=== PATIENT | female | born 1940 | race Caucasian/White ===

== ENCOUNTER 2020-10-01 09:30 | Emergency (ER) | payer OTHER ==
[~2020-10-01] VITALS: Ht 165.1 cm; Wt 86.2 kg
[2020-10-01 10:23] LABS: Basophils # (auto) 0 10 ^3/uL (0-0.2); Lymphocytes # (auto) 1.6 10 ^3/uL (0.4-5.4); Mean Corpuscular Hgb Conc. 34.8 g/dL (32.0-36.0); Neutrophils # (auto) 3.4 10 ^3/uL (1.6-8.6); Nucleated Red Blood Cells % 0.1 %; White Blood Cell 5.5 10^3/uL (4.4-10.8)
[2020-10-01 10:26] LABS: Basophils % (auto) 0.6 % (0.0-2.0); Eosinophils # (auto) 0 10 ^3/uL (0-0.8); Eosinophils % (auto) 0.8 % (0.0-7.0); Hemoglobin 9.8 g/dL (12.2-16.2); Mean Corpuscular Volume 112.1 fL (80.0-100.0); Monocytes # (auto) 0.3 10 ^3/uL (0-1.3); Monocytes % (auto) 6.3 % (0.0-12.0); Neutrophils % (auto) 62.3 % (37.0-80.0); Red Cell Distribution Width 14.2 % (11.8-14.3)
[2020-10-01 10:48] LABS: Albumin 3.6 g/dL (3.4-5.0); Anion Gap 5 (5-15); Blood Urea Nitrogen 18 mg/dL (7-18); Calcium 8.1 mg/dL (8.5-10.1); Carbon Dioxide 23 mmol/L (21-32); Chloride 108 mmol/L (98-107); Glucose 85 mg/dL (74-106); Potassium 4.6 mmol/L (3.5-5.1); Sodium 136 mmol/L (136-145)
[2020-10-01 11:00] LABS: Alanine Aminotransferase 24 U/L (13-56); Alkaline Phosphatase 48 U/L (45-117); Aspartate Aminotransferase 24 U/L (15-37); BUN/Creatinine Ratio 12.2; Bilirubin, Total 0.4 mg/dL (0.2-1.0); GFR African American 44 mL/min; GFR Non-African American 36 mL/min; Total Protein 6.6 g/dL (6.4-8.2)
[2020-10-01 11:03] LABS: Urine WBC None Seen /hpf (0 - 5)
[2020-10-01 11:23] LABS: Amphetamine Screen, Urine NEGATIVE (NEGATIVE); Barbiturate Scree,Urine NEGATIVE (NEGATIVE); Benzodiazephine Screen, Urine NEGATIVE (NEGATIVE); Cannabinoid Screen, Urine NEGATIVE (NEGATIVE); Cocaine Screen, Urine NEGATIVE (NEGATIVE)
[2020-10-01 11:31] LABS: Opiate Scree,Urine NEGATIVE (NEGATIVE); Phencyclidine Screen, Urine NEGATIVE (NEGATIVE)
[2020-10-01 11:32] LABS: Urine Bacteria FEW /hpf (None Seen); Urine Blood Negative /uL (Negative); Urine Mucus FEW (None Seen); Urine Specific Gravity 1.007 (1.001-1.035)
[2020-10-01 11:59] VITALS: BP 150/51
== END 2020-10-01 12:05 | disposition short-term general hospital (02) ==
LOC: ER 09:30
DX: S06.5X0A Traumatic subdural hemorrhage without loss of consciousness, initial encounter (principal); W19.XXXA Unspecified fall, initial encounter; Y93.89 Activity, other specified; Y92.89 Other specified places as the place of occurrence of the external cause; Y99.8 Other external cause status
CPT/HCPCS: 36415; 70450; 70486; 71045; 72125; 80053; 80307; 80320; 81001; 83880; 84484; 85025; 93005; 99291

== ENCOUNTER 2023-03-26 01:22 | Emergency (ER) | payer OTHER ==
[~2023-03-26] VITALS: Ht 165.1 cm; Wt 68.1 kg
[2023-03-26] MEDS ORDERED: GLUCAGON EMERG KIT 1mg/1ml IM ONE (04:30)
[2023-03-26 05:00] VITALS: BP 127/79; PULSE 111; RESP 16; TEMP 98.4; O2SAT 93
[2023-03-26] MEDS ORDERED: STERILE WATER 10 ML ONE (05:30)
== END 2023-03-26 10:00 | disposition left against medical advice (07) ==
LOC: ER 01:22
DX: T18.128A Food in esophagus causing other injury, initial encounter (principal); W44.F3XA Food entering into or through a natural orifice, initial encounter; Y93.89 Activity, other specified; Y92.89 Other specified places as the place of occurrence of the external cause; Y99.8 Other external cause status
CPT/HCPCS: 70360; 96372; 99283; J1610